=== PATIENT | male | born 1970 | race Caucasian/White ===

== ENCOUNTER 2017-03-19 11:05 | Emergency (ER) | payer MEDICAID ==
[~2017-03-19] VITALS: Ht 167.6 cm; Wt 76.2 kg
[2017-03-19 11:11] VITALS: BP_SYST 111
--- NOTE | 2017-03-19 11:11 | NUR ---
Pt. to room 6, report given to Uriah DUONG
--- NOTE | 2017-03-19 11:20 | NUR ---
Pt presents to ED with c/o dizziness episode this morning, wanted to be evaluated. Pt stated he has been drinking alcohol and barely sleep all month. last alcohol consumption at last night per pt. A&Ox4, facial symmetric, hand theater teacher equal in strength, denies dizziness at the moment. Will continue to monitor
--- NOTE | 2017-03-19 11:25 | NUR ---
HR 106, MD Villalba aware
--- NOTE | 2017-03-19 11:38 | NUR ---
MD Villalba at bedside examining pt
[2017-03-19] MEDS ORDERED: LORazepam 2 MG/ML VIAL (FOR ER USE) IVP ONE (11:45)
[2017-03-19] MEDS ORDERED: NACL 0.9% 1,000 ML IV ONE ×2 (11:45→12:30)
[2017-03-19 12:08] LABS: CALCIUM 7.9 mg/dL (8.4-11.0); CREATININE 0.97 mg/dL (0.55-1.30)
[2017-03-19 12:11] LABS: POTASSIUM 2.8 mmol/L (3.5-5.1)
[2017-03-19 12:14] LABS: BILIRUBIN,URINE 3+ (NEGATIVE); BLOOD, URINE 2+ (NEGATIVE); CLARITY/URINE SL HAZY (CLEAR); COLOR,URINE BROWN (YELLOW); GLUCOSE,URINE TRACE (NEGATIVE); KETONES,URINE 1+ (NEGATIVE); LEUKOCYTE ESTERASE ,URINE NEGATIVE (NEGATIVE); NITRITE, URINE POSITIVE (NEGATIVE); PH,URINE 5.5 (5.0-8.0); PROTEIN URINE 3+ (NEGATIVE)
--- NOTE | 2017-03-19 12:21 | NUR ---
K=2.8, MD CALLES AWARE. AWAITING ORDER
[2017-03-19] MEDS ORDERED: KCL 20 mEq in 100 mL (PREMIX) 100 ML IV ONE (12:30)
[2017-03-19 12:31] LABS: BACTERIA,URINE FEW /HPF (None Seen); RBC,URINE 0-3 /HPF (0-3); WBC,URINE 0-3 /HPF (0-3)
[2017-03-19 12:32] LABS: MUCUS,URINE 1+ /LPF (None Seen)
--- NOTE | 2017-03-19 13:20 | NUR ---
Pt in bed, family at bedside, VSS, no acute distress
[2017-03-19 14:02] LABS: ALBUMIN 2.6 g/dL (3.4-4.8); BILIRUBIN,DIRECT 5.9 mg/dL (0.0-0.3); TOTAL BILIRUBIN 7.6 mg/dL (0.0-1.0); TOTAL PROTEIN, SERUM 5.9 g/dL (6.4-8.3)
--- NOTE | 2017-03-19 14:20 | NUR ---
Pt in bed, denies distress
[2017-03-19 14:40] VITALS: BP_SYST 123
--- NOTE | 2017-03-19 14:40 | NUR ---
Patient given written and verbal discharge instructions and verbalizes understanding. ER MD Villalba discussed with patient the results and treatment provided. Patient in stable condition. ID arm band removed. IV catheter removed intact and dressing applied, no active bleeding. Rx of librium given. Patient educated on pain management and to follow up with PMD. Pain Scale 0/10 Opportunity for questions provided and answered.
== END 2017-03-19 11:40 | disposition home or self-care (01) ==
LOC: SED 11:05
DX: K70.10 Alcoholic hepatitis without ascites (principal); F10.10 Alcohol abuse, uncomplicated; F10.239 Alcohol dependence with withdrawal, unspecified; K64.9 Unspecified hemorrhoids
CPT/HCPCS: 36415; 80048; 80076; 81000; 96361; 96365; 96366; 96375; 99285; J2060; J3480; J7030